=== PATIENT | female | born 1995 | race Caucasian/White ===

== ENCOUNTER 2019-09-29 09:35 | Outpatient (CLI) | payer BC ==
--- NOTE | 2019-09-29 10:37 | BD ---
BONE DENSITOMETRY USING DEXA: HISTORY: A 24-year-old female with concern for osteoporosis. FINDINGS: Lumbar Spine: BMD (g/cm2) L1 0.833 T-Score: -1.4 Z-Score: -1.4 L2 0.900 T-Score: -1.2 Z-Score: -1.1 L3 0.919 T-Score: -1.5 Z-Score: -1.5 L4 0.935 T-Score: -1.1 Z-Score: -1.1 L1-L4 0.898 T-Score: -1.4 Z-Score: -1.3 Femoral Neck: 0.712 T-Score: -1.2 Z-Score: -1.2 Total Femur: 0.849 T-Score: -0.8 Z-Score: -0.8 The 10-year fracture risk for a major osteoporotic fracture is 1.9 and for a hip fracture is 0.1%. Impression: Osteopenia. POS: [facility]
== END 2019-09-29 09:36 | disposition home or self-care (01) ==
LOC: BICMAMMO 09:35
PROVIDERS: ATTEND Internal Medicine Endocrinology, Diabetes & Metabolism
DX: Z13.820 Encounter for screening for osteoporosis (principal); M85.89 Other specified disorders of bone density and structure, multiple sites
CPT/HCPCS: 77080